=== PATIENT | female | born 1950 | race Caucasian/White ===

== ENCOUNTER 2024-10-07 02:59 | Inpatient (IN) | payer MEDICARE, MEDICAID, OTHER ==
[2024-10-07] VITALS (96 sets, daily range): BP systolic 31–161; BP diastolic 12–149; PULSE 75–122; RESP 16–32; TEMP 32.9–36.6404; O2SAT 17–100
[~2024-10-07] VITALS: Ht 167.6 cm; Wt 76.7 kg
[~2024-10-07 02:59] MED LIST: APIX5TAB MT; APIX5TAB PO; ATOR10TA GT; FURO-152 MT; LEVO75TA7 PO; MENT71OI TOP; THIA100T72 PO; VALP250S22 PO
[2024-10-07] MEDS ORDERED: MIDAZOLAM 100MG/100ML PMX 100 ML IV SCH (03:15)
[2024-10-07] MEDS ORDERED: PIPERACILLIN/TAZO 3.375G/50ML 50 ML IV ONE (03:15)
[2024-10-07] MEDS ORDERED: ONDANSETRON HCL 4MG/2ML INJ IV ONE (03:15)
[2024-10-07] MEDS ORDERED: VANCOMYCIN 1G PREMIX 200 ML IV ONE (03:15)
[2024-10-07] MEDS ORDERED: PROPOFOL 10MG/ML 100ML 100 ML IV SCH (03:15)
[2024-10-07] MEDS: SODIUM CHLORIDE 0.9% (SEPSIS BOLUS) IV ONE (03:36)
[2024-10-07] MEDS ORDERED: METHYLPREDNISOLONE SOD SUCC 125MG/2ML (ACT-O-VIAL) IV ONE (04:00)
[2024-10-07] MEDS ORDERED: ALBUTEROL (0.083%) 2.5MG/3ML NEB HHN SCH (04:00)
[2024-10-07 04:07] LABS: HEMATOCRIT. 50.6 % (36.0-48.0); HEMOGLOBIN. 15.8 g/dL (12.0-16.0); PLATELET 516 x1000/uL (130-400); RED BLOOD CELL COUNT 4.94 mill/uL (4.2-5.4); RED CELL DISTRIBUTION WIDTH 15.4 % (11.6-14.6)
[2024-10-07 04:08] LABS: BASOPHILS % 0.5 % (0.0-2.0); EOSINOPHILS % 0.3 % (0.0-5.0); LYMPHOCYTES % 41.0 % (20.0-50.0); MEAN PLATELET VOLUME 8.4 fl (7.4-10.4); MONOCYTES % 5.9 % (2.0-8.0); NEUTROPHILS % 52.3 % (40.0-76.0)
[2024-10-07 04:17] LABS: INR 1.1
[2024-10-07 04:27] LABS: UREA NITROGEN BLOOD 64 mg/dL (9-23)
[2024-10-07 04:28] LABS: ASPARTATE AMINOTRANSFERASE 182 IU/L (<34); BILIRUBIN DIRECT 0.1 mg/dL (<=3.0)
[2024-10-07 04:29] LABS: BILIRUBIN TOTAL 0.4 mg/dL (0.1-1.0)
[2024-10-07 04:47] LABS: CREATININE 2.0 mg/dL (0.6-1.0); PROTEIN TOTAL 9.0 g/dL (6.0-8.3); TROPONIN I HIGH SENSITIVITY 36 ng/L (3.0-34)
[2024-10-07] MEDS ORDERED: VASOPRESSIN 20 UNIT in SODIUM CHLORIDE 0.9% 99 ML IV PRN (05:00)
[2024-10-07] MEDS: NOREPINEPHRINE 8MG/250ML PMX 250 ML IV PRN (05:13)
[2024-10-07 05:28] LABS: BG BASE EXCESS -20.6 mmol/L (-2.0-3.0); BG CARBOXYHEMOGLOBIN 0.3 % (0.5-1.5); BG DEOXYHEMOGLOBIN 0.4 % (0.0-5.0); BG FRACTION INSPIRED OXYGEN 100; BG HCO3 ACT 8.6 mmol/L (21.0-28.0); BG METHEMOGLOBIN 0.0 % (0.5-1.5); BG OXYGEN SATURATION 99.6 % (94.0-98.0); BG OXYHEMOGLOBIN 99.3 % (94.0-98.0); BG PCO2 31.6 mmHg (32.0-45.0); BG PEEP (cmH2O) 5.0 cmH2O; BG PH 7.054 (7.350-7.450); BG PO2 310.1 mmHg (83.0-108.0); BG SAMPLE SITE RIGHT BRACHIAL; BG TIDAL VOLUME(mL) 450.0 mL; BG TOTAL HEMOGLOBIN 12.6 g/dL (12.0-16.0); BG VENT MODE VENT - AC; BG VENT RATE 20.0 set
[2024-10-07] MEDS ORDERED: SODIUM CHLORIDE 0.45% 500 ML IV ONE (05:30)
[2024-10-07] MEDS: DEXT 5%/0.45% NACL 1000ML 1,000 ML IV SCH (06:00)
[2024-10-07] MEDS ORDERED: IPRATROPIUM BROMIDE (0.02%) 0.5MG/2.5ML NEB HHN PRN (06:00)
[2024-10-07] MEDS: MAGNESIUM 2 G PREMIX 50 ML IV ONE (06:03)
[2024-10-07] MEDS: PIPERACILLIN/TAZO 3.375G/50ML 50 ML IV SCH (06:04)
[2024-10-07] MEDS: VANCOMYCIN 1.25GM/250ML IV NR (06:05)
[2024-10-07] MEDS: EPINEPHRINE 5 MG in SODIUM CHLORIDE 0.9% 245 ML IV PRN (06:27)
[2024-10-07] MEDS: PHENYLEPHRINE 50MG/250ML PMX 250 ML IV PRN (06:36)
[2024-10-07 06:38] LABS: TROPONIN I HIGH SENSITIVITY 180 ng/L (3.0-34)
[2024-10-07] MEDS: SODIUM BICARBONATE 8.4% 50MEQ/50ML SYR IV NR ×2 (07:00→07:19)
[2024-10-07] MEDS: VASOPRESSIN 20 UNIT in SODIUM CHLORIDE 0.9% 99 ML IV PRN (07:06)
[2024-10-07] MEDS: SODIUM BICARBONATE 150 MEQ in DEXTROSE 5% WATER 850 ML IV SCH (07:20)
[2024-10-07] MEDS: HYDROCORTISONE SOD SUCCINATE 100 MG/2 ML VIAL IV SCH (07:28)
[2024-10-07] MEDS: LACTATED RINGERS 1,000 ML IV ONE (07:28)
[2024-10-07] MEDS: NOREPINEPHRINE 32 MG in DEXT 5% WATER 218 ML IV PRN (08:00)
[2024-10-07] MEDS: IPRATROPIUM BROMIDE (0.02%) 0.5MG/2.5ML NEB HHN SCH ×2 (08:19→20:09)
[2024-10-07 09:21] LABS: FOLIC ACID (FOLATE) SERUM > 20.00 ng/mL (>5.38); VITAMIN B12 SERUM 752 pg/mL (211-911)
[2024-10-07 09:39] LABS: BG BASE EXCESS -14.3 mmol/L (-2.0-3.0); BG CARBOXYHEMOGLOBIN 0.2 % (0.5-1.5); BG DEOXYHEMOGLOBIN 0.4 % (0.0-5.0); BG FRACTION INSPIRED OXYGEN 100; BG HCO3 ACT 11.9 mmol/L (21.0-28.0); BG METHEMOGLOBIN 0.0 % (0.5-1.5); BG OXYGEN SATURATION 99.6 % (94.0-98.0); BG OXYHEMOGLOBIN 99.4 % (94.0-98.0); BG PCO2 29.8 mmHg (32.0-45.0); BG PEEP (cmH2O) 10.0 cmH2O; BG PH 7.220 (7.350-7.450); BG PO2 237.9 mmHg (83.0-108.0); BG SAMPLE SITE RIGHT RADIAL; BG TIDAL VOLUME(mL) 500.0 mL; BG TOTAL HEMOGLOBIN 14.5 g/dL (12.0-16.0); BG VENT MODE VENT - AC; BG VENT RATE 26.0 set
[2024-10-07] MEDS: EPINEPHRINE 10 MG in SODIUM CHLORIDE 0.9% 240 ML IV PRN (09:55)
[2024-10-07 09:58] LABS: INFLUENZA TYPE A Presumptive Negative (Pres. Neg.); INFLUENZA TYPE B Presumptive Negative (Pres. Neg.)
[2024-10-07 09:59] LABS: RESPIRATORY SYNCYTIAL VIRUS Not Detected (Not Detectd)
[2024-10-07] MEDS ORDERED: EPINEPHRINE 20 MG in SODIUM CHLORIDE 0.9% 480 ML IV PRN (10:00)
[2024-10-07] MEDS: PHENYLEPHRINE 100 MG in DEXT 5% WATER 240 ML IV PRN (10:59)
[2024-10-07] MEDS: PANTOPRAZOLE SODIUM 40 MG/VIAL IV SCH (11:14)
[2024-10-07] MEDS: LEVOTHYROXINE SODIUM 75MCG TABLET PO SCH (11:15)
[2024-10-07] MEDS ORDERED: DEXTROSE 50% WATER 50ML SYRINGE IV PRN (11:30)
[2024-10-07] MEDS: BLOOD SUGAR DIAGNOSTIC STRIP TEST SCH (12:43)
[2024-10-07] MEDS: EPINEPHRINE 20 MG in SODIUM CHLORIDE 0.9% 480 ML IV PRN (12:43)
[2024-10-07] MEDS: INSULIN LISPRO 100 UNITS/ML SUBCUT SCH (13:31)
[2024-10-07] MEDS: ATORVASTATIN CALCIUM 40MG TABLET PO SCH (20:45)
[2024-10-08] VITALS (138 sets, daily range): BP systolic 37–114; BP diastolic 11–84; PULSE 0–131; RESP 0–35; TEMP 35.2–35.6; O2SAT 69–90
[2024-10-08 07:42] LABS: CREATININE 2.4 mg/dL (0.6-1.0); UREA NITROGEN BLOOD 57 mg/dL (9-23)
[2024-10-08 08:48] LABS: BG BASE EXCESS -21.7 mmol/L (-2.0-3.0); BG CARBOXYHEMOGLOBIN 0.5 % (0.5-1.5); BG DEOXYHEMOGLOBIN 3.9 % (0.0-5.0); BG FRACTION INSPIRED OXYGEN 100; BG HCO3 ACT 6.6 mmol/L (21.0-28.0); BG METHEMOGLOBIN 0.3 % (0.5-1.5); BG OXYGEN SATURATION 96.1 % (94.0-98.0); BG OXYHEMOGLOBIN 95.3 % (94.0-98.0); BG PCO2 22.8 mmHg (32.0-45.0); BG PEEP (cmH2O) 10.0 cmH2O; BG PH 7.080 (7.350-7.450); BG PO2 101.8 mmHg (83.0-108.0); BG SAMPLE SITE RIGHT RADIAL; BG TIDAL VOLUME(mL) 500.0 mL; BG TOTAL HEMOGLOBIN 9.4 g/dL (12.0-16.0); BG VENT MODE VENT - PRVC; BG VENT RATE 26.0 set
[2024-10-08 08:57] LABS: TROPONIN I HIGH SENSITIVITY 2811 ng/L (3.0-34)
[2024-10-08 10:14] LABS: HEMATOCRIT. 31.6 % (36.0-48.0); RED BLOOD CELL COUNT 2.55 mill/uL (4.2-5.4); RED CELL DISTRIBUTION WIDTH 16.6 % (11.6-14.6)
[2024-10-08 10:28] LABS: HEMOGLOBIN. 8.4 g/dL (12.0-16.0)
[2024-10-08 11:18] LABS: BAND% 31.0 % (1.0-6.0); LYMPHOCYTES % MANUAL 12.0 % (20.0-60.0); METAMYELOCYTES % 6.0 % (0-0); MONOCYTES % MANUAL 7.0 % (2.0-8.0); MYELOCYTES % 2.0 % (0-0); NEUTROPHILS % MANUAL 42.0 % (45.0-75.0); NUCLEATED RED BLOOD CELLS 1 /100 WBC; PLATELET ESTIMATE NORMAL
[2024-10-08 11:21] LABS: PLATELET 153 x1000/uL (130-400)
[2024-10-08] MEDS: VANCOMYCIN 1GM PMX (XELLIA) 200 ML IV SCH (18:05)
[2024-10-08 21:18] LABS: BG BASE EXCESS -12.4 mmol/L (-2.0-3.0); BG CARBOXYHEMOGLOBIN 6.8 % (0.5-1.5); BG DEOXYHEMOGLOBIN 0.1 % (0.0-5.0); BG FRACTION INSPIRED OXYGEN 100; BG HCO3 ACT 13.3 mmol/L (21.0-28.0); BG METHEMOGLOBIN 0.1 % (0.5-1.5); BG OXYGEN SATURATION 99.9 % (94.0-98.0); BG OXYHEMOGLOBIN 93.0 % (94.0-98.0); BG PCO2 28.5 mmHg (32.0-45.0); BG PEEP (cmH2O) 10.0 cmH2O; BG PH 7.286 (7.350-7.450); BG PO2 187.7 mmHg (83.0-108.0); BG SAMPLE SITE LEFT FEMORAL; BG TIDAL VOLUME(mL) 500.0 mL; BG TOTAL HEMOGLOBIN 3.0 g/dL (12.0-16.0); BG TOTAL RESPIRATORY RATE 26 b/min; BG VENT MODE VENT - AC; BG VENT RATE 26.0 set
[2024-10-08] MEDS: SODIUM BICARBONATE 8.4% 50MEQ/50ML SYR IV SCH (21:27)
[2024-10-08] MEDS: SODIUM BICARBONATE 8.4% 50MEQ/50ML SYR IV NR (22:00)
[2024-10-08 22:02] LABS: MEAN PLATELET VOLUME 9.5 fl (7.4-10.4); PLATELET 103 x1000/uL (130-400); RED BLOOD CELL COUNT 2.15 mill/uL (4.2-5.4); RED CELL DISTRIBUTION WIDTH 17.0 % (11.6-14.6)
[2024-10-08 22:08] LABS: HEMATOCRIT. 31.8 % (36.0-48.0); HEMOGLOBIN. 6.9 g/dL (12.0-16.0)
[2024-10-08 22:39] LABS: BAND% 16.0 % (1.0-6.0); LYMPHOCYTES % MANUAL 29.0 % (20.0-60.0); METAMYELOCYTES % 1.0 % (0-0); MONOCYTES % MANUAL 3.0 % (2.0-8.0); NEUTROPHILS % MANUAL 51.0 % (45.0-75.0); NUCLEATED RED BLOOD CELLS 7 /100 WBC; PLATELET ESTIMATE DECREASED
== END 2024-10-08 22:18 | DRG 871 ==
LOC: ER 03:25 → CVICU 05:00 → EDBEDREQ 05:05 → EDBEDREQTM 05:05 → ENRESERV 05:15
PROVIDERS: ADMIT Internal Medicine; ATTEND Internal Medicine
PROC: 5A1945Z Respiratory Ventilation, 24-96 Consecutive Hours (ICD-10-PCS; principal; 2024-10-07)
PROC: 0BH17EZ Insertion of Endotracheal Airway into Trachea, Via Natural or Artificial Opening (ICD-10-PCS; 2024-10-07)
PROC: 5A12012 Performance of Cardiac Output, Single, Manual (ICD-10-PCS; 2024-10-07)
PROC: 0W9B30Z Drainage of Left Pleural Cavity with Drainage Device, Percutaneous Approach (ICD-10-PCS; 2024-10-07)
PROC: 0W9930Z Drainage of Right Pleural Cavity with Drainage Device, Percutaneous Approach (ICD-10-PCS; 2024-10-07)
PROC: 06HY33Z Insertion of Infusion Device into Lower Vein, Percutaneous Approach (ICD-10-PCS; 2024-10-07)
PROC: B54BZZA Ultrasonography of Right Lower Extremity Veins, Guidance (ICD-10-PCS; 2024-10-07)
PROC: 5A09357 Assistance with Respiratory Ventilation, Less than 24 Consecutive Hours, Continuous Positive Airway Pressure (ICD-10-PCS; 2024-10-07)
PROC: 5A12012 Performance of Cardiac Output, Single, Manual (ICD-10-PCS; 2024-10-08)
DX: A41.9 Sepsis, unspecified organism (principal); G92.8 Other toxic encephalopathy; J96.01 Acute respiratory failure with hypoxia; R65.21 Severe sepsis with septic shock; E46 Unspecified protein-calorie malnutrition; E87.0 Hyperosmolality and hypernatremia; E87.21 Acute metabolic acidosis; N17.9 Acute kidney failure, unspecified; J93.9 Pneumothorax, unspecified; Z20.822 Contact with and (suspected) exposure to COVID-19; E11.65 Type 2 diabetes mellitus with hyperglycemia; I12.9 Hypertensive chronic kidney disease with stage 1 through stage 4 chronic kidney disease, or unspecified chronic kidney disease; I46.9 Cardiac arrest, cause unspecified; N18.9 Chronic kidney disease, unspecified; E03.9 Hypothyroidism, unspecified; R57.0 Cardiogenic shock; R62.7 Adult failure to thrive; E11.22 Type 2 diabetes mellitus with diabetic chronic kidney disease; E78.5 Hyperlipidemia, unspecified; E88.09 Other disorders of plasma-protein metabolism, not elsewhere classified; J44.89 Other specified chronic obstructive pulmonary disease; R13.10 Dysphagia, unspecified; Z79.84 Long term (current) use of oral hypoglycemic drugs; Z79.899 Other long term (current) drug therapy; Z87.01 Personal history of pneumonia (recurrent); Z68.27 Body mass index [BMI] 27.0-27.9, adult
CPT/HCPCS: 31500; 31720; 36415; 36600; 71045; 80048; 80076; 80202; 82010; 82375; 82607; 82746; 82805; 82962; 83036; 83605; 83735; 83880; 83930; 84145; 84484; 85025; 86920; 87420; 87426; 87804; 92950; 93005; 93308; 94002; 94003; 94070; 94640; 94664; 98960; 99291; J1720; J1815; J2250; J2371; J2470; J2543; J3373; J3475; J3490; J7030; J7040; J7050; J7060; J7070